=== PATIENT | male | born 1975 | race Two or more races ===

== ENCOUNTER 2023-01-27 14:36 | Emergency (ER) | payer BC ==
[~2023-01-27] VITALS: Ht 172.7 cm; Wt 78.4 kg
[2023-01-27 14:52] VITALS: BP 159/104
[2023-01-27] MEDS ORDERED: TETanus/Pertussis (Acell)/Diphther VAC/PF (Tdap-Adult) 0.5ml syringe IMVAC ONE (16:10)
== END 2023-01-27 16:46 | disposition home or self-care (01) ==
LOC: ER 14:37
DX: S61.210A Laceration without foreign body of right index finger without damage to nail, initial encounter (principal); Z72.89 Other problems related to lifestyle; W18.39XA Other fall on same level, initial encounter; Y93.89 Activity, other specified; Y92.89 Other specified places as the place of occurrence of the external cause; Y99.8 Other external cause status
CPT/HCPCS: 12001; 90471; 90715; 99283